=== PATIENT | male | born 1960 | race Caucasian/White ===

== ENCOUNTER → 2017-09-14 | Outpatient (CLI) | payer BC ==
--- NOTE | ~2017-09-14 | 2DMMODE ---
[place] [address] 2 D/M-MODE ECHOCARDIOGRAM Name: KINGS HUMPHREY MARISELAJAIME Room #: REG CL [facility]#: [id number] Admission: 09/14/17 Attend Phys: Don Cox, Discharge: Date of : 58 Date of Service: 09/14/17 1623 Report #: [id number] THIS REPORT FOR: //name// APPROVED REPORT Study performed: 09/14/2017 13:57:23 EXAM: Comprehensive 2D, Doppler, and color-flow Echocardiogram Patient Location: Out-Patient Status: routine BSA: 2.24 HR: 80 bpm BP: 196/105 mmHg Rhythm: NSR Other Information Study Quality: Good Indications Aortic stenosis. Hx: CAD. stents, HTN, HLP 2D Dimensions RVDd: 36.12 mm LVEF(%): 56.03 (>50%) IVSd: 12.36 (7-11mm) LVOT Diam: 20.97 (18-24mm) LVDd: 42.38 mm PWd: 12.58 (7-11mm) LVDs: 30.10 (25-40mm) Aortic Root: 32.13 mm Rios's LVEF: 56.03 % Volumes Left Atrial Volume (Systole) Single Plane 4CH: 59.30 mL Single Plane 2CH: 55.87 mL LA ESV Index: 29.00 mL/m2 Aortic Valve AoV Peak Donald.: 3.45 m/s AO Peak Gr.: 47.55 mmHg LVOT Max P.93 mmHg AO Mean Gr.: 26.64 mmHg AO V2 Mean: 2.47 m/s LVOT Max V: 1.11 m/s AO V2 VTI: 71.86 cm MELBA Vmax: 1.11 cm2 Mitral Valve [place] [address] 2 D/M-MODE ECHOCARDIOGRAM Name: KINGS HUMPHREY Room #: REG [facility].#: [id number] Admission: 09/14/17 Attend Phys: Don Cox, Discharge: Date of : 58 Date of Service: 09/14/17 1623 Report #: [id number] E/A Ratio: 0.8 MV Decel. Time: 270.88 ms MV E Max Donald.: 0.85 m/s MV A Donald.: 1.06 m/s MV PHT: 78.56 ms IVRT: 72.66 ms Pulmonary Valve PV Peak Donald.: 1.28 m/s PV Peak Gr.: 6.54 mmHg Pulmonary Vein P Vein S: 0.60 m/s P Vein A: 0.35 m/s P Vein D: 0.34 m/s P Vein A Dur.: 86.5 msec P Vein S/D Ratio: 1.76 Tricuspid Valve RAP Estimate: 5.00 mmHg Left Ventricle The left ventricle is normal size. There is normal LV segmental wall motion. Mild concentric left ventricular hypertrophy. Left ventricular systolic function is normal. LVEF is 60-65%. Mild diastolic dysfunction is present (impaired relaxation pattern). Right Ventricle The right ventricle is normal size. The right ventricular systolic function is normal. Atria The left atrium size is normal. The right atrium size is normal. Aortic Valve Aortic valve is moderately calcified, trileaflet, moderately stenotic. Trace aortic regurgitation. There is moderate valvular aortic stenosis. Calculated aortic valve area is 1.1 cm2 with maximum pressure gradient of 48 mmHg and mean pressure gradient of 27 mmHg. Mitral Valve Mild mitral annular calcification. Trace mitral regurgitation. No evidence of mitral valve stenosis. Tricuspid Valve The tricuspid valve is normal in structure. There is no tricuspid [address] [address] 2 D/M-MODE ECHOCARDIOGRAM Name: KAMKINGS DUVAL Room #: REG CL [facility]#: [id number] Admission: 09/14/17 Attend Phys: Don Cox, Discharge: Date of : 58 Date of Service: 09/14/17 1623 Report #: [id number] valve regurgitation noted. Unable to assess PA pressure. Pulmonic Valve The pulmonary valve is normal in structure. Trace pulmonic regurgitation. Great Vessels The aortic root is normal in size. The ascending aorta is normal in size. IVC is normal in size and collapses >50% with inspiration. Pericardium There is no pericardial effusion. <Conclusion> Left ventricular systolic function is normal. There is normal LV segmental wall motion. LVEF is 60-65%. Mild diastolic dysfunction Aortic valve is moderately calcified, trileaflet, moderately stenotic. Trace insufficiency Calculated aortic valve area is 1.1 cm2 with maximum pressure gradient of 48 mmHg and mean pressure gradient of 27 mmHg. Mild mitral annular calcification. Trace mitral regurgitation. Pulmonary artery pressure could not be reliably ascertained There is no pericardial effusion. <ELECTRONICALLY SIGNED> By: Yinka Clark MD, FACC 09/14/17 1623 1623 162 Yinka Clark MD, FACC /INF
== END ==
LOC: CV 07:30
DX: I35.0 Nonrheumatic aortic (valve) stenosis (principal); I25.10 Atherosclerotic heart disease of native coronary artery without angina pectoris; Z98.61 Coronary angioplasty status; I10 Essential (primary) hypertension; E78.5 Hyperlipidemia, unspecified; I51.7 Cardiomegaly; I70.0 Atherosclerosis of aorta; I34.8 Other nonrheumatic mitral valve disorders

== ENCOUNTER → 2018-12-07 | Outpatient (CLI) | payer BC ==
--- NOTE | 2018-12-07 13:47 | 2DMMODE ---
[facility] [employer] [place] [address] 2 D/M-MODE ECHOCARDIOGRAM Name: KINGS HUMPHREY MARISELAJAIME Room #: REG [facility]#: [id number] ������������� Admission: 12/07/18 ������������� Attend Phys: Don Cox, Discharge: ��� ������������� ��� Date of : 58 Date of Service: 12/07/18 1346 �� Report #: [id number] �������� ��������������������������������������������[id number] THIS REPORT FOR: //name// APPROVED REPORT Study performed: 12/07/2018 11:17:33 EXAM: Comprehensive 2D, Doppler, and color-flow Echocardiogram Patient Location: Out-Patient Status: routine BSA: 2.24 HR: 77 bpm BP: 142/82 mmHg Rhythm: NSR Other Information Study Quality: Adequate Indications Aortic Valve Disease Hypertension/HDD 2D Dimensions RVDd: 31.79 mm IVSd: 13.70 (7-11mm) LVOT Diam: 17.54 (18-24mm) LVDd: 41.38 mm PWd: 13.23 (7-11mm) Ascending Ao: 29.27 (22-36mm) LVDs: 27.32 (25-40mm) Aortic Root: 33.68 mm IVC: 18.00 mm Volumes Left Atrial Volume (Systole) Single Plane 4CH: 102.69 mL Single Plane 2CH: 59.32 mL LA ESV Index: 37.00 mL/m2 Aortic Valve AoV Peak Donald.: 3.67 m/s AO Peak Gr.: 53.74 mmHg LVOT Max P.41 mmHg AO Mean Gr.: 35.92 mmHg LVOT Mean P.48 mmHg AO V2 Mean: 2.84 m/s LVOT Max V: 1.05 m/s AO V2 VTI: 86.45 cm LVOT Mean V: 0.73 m/s MELBA (VTI): 0.70 cm2 LVOT V1 VTI: 25.11 cm MELBA Vmax: 0.69 cm2 SV (LVOT): 60.61 mL [facility] [place] [address] 2 D/M-MODE ECHOCARDIOGRAM Name: GABBISCOTOMAYRAKINGS DUVAL Room #: REG [facility]#: [id number] ������������� Admission: 12/07/18 ������������� Attend Phys: Don Cox, Discharge: ��� ������������� ��� Date of : 58 Date of Service: 12/07/18 1346 �� Report #: [id number] �������� ��������������������������������������������[id number] Mitral Valve E/A Ratio: 0.6 MV Decel. Time: 444.96 ms MV E Max Donald.: 0.72 m/s MV A Donald.: 1.17 m/s MV PHT: 129.04 ms IVRT: 133.79 ms Pulmonary Valve PV Peak Donald.: 0.97 m/s PV Peak Gr.: 3.81 mmHg Pulmonary Vein P Vein S: 0.60 m/s P Vein A: 0.25 m/s P Vein D: 0.31 m/s P Vein A Dur.: 110.7 msec P Vein S/D Ratio: 1.94 Left Ventricle The left ventricle is normal size. There is normal LV segmental wall motion. Mild concentric left ventricular hypertrophy. The left ventricular systolic function is normal. The left ventricular ejection fraction is within the normal range. LVEF is 60-65%. Right Ventricle The right ventricle is normal size. The right ventricular systolic function is normal. Atria Left atrium is dilated. The right atrium size is normal. Aortic Valve The aortic valve is normal in structure. Aortic valve is calcified. Mild aortic regurgitation. Severe aortic stenosis. Mitral Valve The mitral valve is normal in structure. There is no mitral valve regurgitation noted. No evidence of mitral valve stenosis. Tricuspid Valve The tricuspid valve is normal in structure. There is no tricuspid valve regurgitation noted. Pulmonic Valve The pulmonary valve is normal in structure. There is no pulmonic valvular regurgitation. [facility] [address] [place] [address] 2 D/M-MODE ECHOCARDIOGRAM Name: KINGS HUMPHREY Room #: REG [facility]#: [id number] ������������� Admission: 12/07/18 ������������� Attend Phys: Don Cox, Discharge: ��� ������������� ��� Date of : 58 Date of Service: 12/07/18 1346 �� Report #: [id number] �������� ��������������������������������������������[id number] Great Vessels The aortic root is normal in size. IVC is normal in size and collapses >50% with inspiration. Pericardium There is no pericardial effusion. <Conclusion> The left ventricle is normal size. LVEF is 60-65%. Left atrium is dilated. The aortic valve is normal in structure. Aortic valve is calcified. Mild aortic regurgitation. The mitral valve is normal in structure. The tricuspid valve is normal in structure. The pulmonary valve is normal in structure. There is no pericardial effusion. ��������������������������������������������� <ELECTRONICALLY SIGNED> ���������������������������������������� By: Eladio Schrader MD ��������������������������������������������� 12/07/18 1346 1346 1346 Eladio Schrader MD /INF
== END ==
LOC: CV 10:38
DX: I35.0 Nonrheumatic aortic (valve) stenosis (principal)

== ENCOUNTER → 2020-08-08 | Outpatient (CLI) | payer BC ==
--- NOTE | 2020-08-08 14:44 | 2DMMODE ---
[facility] [place] [address] 2 D/M-MODE ECHOCARDIOGRAM Name: KINGS HUMPHREY Room #: REG [facility]#: [id number] Admission: 08/08/20 Attend Phys: Bridger Contreras MD Discharge: Date of : 58 Report #: [id number] THIS REPORT FOR: cc: Yo Parker John E. DO Lammoglia, Francisco J. MD ~ APPROVED REPORT Study performed: 08/08/2020 13:55:46 EXAM: Comprehensive 2D, Doppler, and color-flow Echocardiogram Patient Location: Out-Patient Status: routine BSA: 2.22 HR: 64 bpm BP: 136/88 mmHg Rhythm: NSR Other Information Study Quality: Good Indications Status post AVR, CABG. (2019) 2D Dimensions RVDd: 45.99 mm IVSd: 12.20 (7-11mm) LVDd: 47.62 mm PWd: 13.28 (7-11mm) Ascending Ao: 33.55 (22-36mm) LVDs: 26.63 (25-40mm) Aortic Root: 29.42 mm Volumes Left Atrial Volume (Systole) Single Plane 4CH: 95.14 mL Single Plane 2CH: 82.86 mL LA ESV Index: 44.00 mL/m2 Aortic Valve AoV Peak Donald.: 3.26 m/s AO Peak Gr.: 42.55 mmHg LVOT Max P.34 mmHg AO Mean Gr.: 24.36 mmHg AO V2 Mean: 2.29 m/s LVOT Max V: 1.26 m/s AO V2 VTI: 76.50 cm [facility] [address] [address] 2 D/M-MODE ECHOCARDIOGRAM Name: KINGS HUMPHREY Room #: REG CL [facility]#: [id number] Admission: 08/08/20 Attend Phys: Jose J Capps Discharge: Date of : 58 Report #: [id number] Mitral Valve E/A Ratio: 1.5 MV Decel. Time: 254.41 ms MV E Max Donald.: 1.32 m/s MV A Donald.: 0.89 m/s MV PHT: 73.78 ms IVRT: 64.59 ms Pulmonary Valve PV Peak Donald.: 1.23 m/s PV Peak Gr.: 6.04 mmHg Pulmonary Vein P Vein S: 0.63 m/s P Vein A: 0.39 m/s P Vein D: 0.71 m/s P Vein A Dur.: 170.7 msec P Vein S/D Ratio: 0.89 Tricuspid Valve TR Peak Donald.: 2.56 m/s RAP Estimate: 5.00 mmHg TR Peak Gr.: 26.12 mmHg PA Pressure: 31.00 mmHg Left Ventricle The left ventricle is normal size. There is normal LV segmental wall motion. Mild concentric left ventricular hypertrophy. Left ventricular systolic function is normal. LVEF is 65%. Moderate diastolic dysfunction is present (pseudonormal filling). Right Ventricle The right ventricle is normal size. The right ventricular systolic function is normal. Atria Left atrium is mildly dilated. The right atrium size is normal. Aortic Valve Aortic valve replacement with an Chicas 23mm Bovine valve. Peak pressure gradient of 43mmHg, mean gradient of 24mmHg. Trace aortic regurgitation. Mitral Valve Mitral valve leaflets are mildly thickened. Moderate mitral annular calcification cannot exclude vegetation. Trace mitral regurgitation. No evidence of mitral valve stenosis. [facility] [address] [place] [address] 2 D/M-MODE ECHOCARDIOGRAM Name: KINGS HUMPHREY Room #: REG [facility]#: [id number] Admission: 08/08/20 Attend Phys: Jose J Capps Discharge: Date of : 58 Report #: [id number] Tricuspid Valve The tricuspid valve is normal in structure. Mild tricuspid regurgitation. Estimated PAP is 30mmHg. Pulmonic Valve The pulmonary valve is normal in structure. Trace pulmonic regurgitation. Great Vessels The aortic root is normal in size. The ascending aorta is normal in size. IVC is normal in size and collapses >50% with inspiration. Pericardium There is no pericardial effusion. <Conclusion> The left ventricle is normal size. LVEF is 65%. Left atrium is mildly dilated. Aortic valve replacement with an Chicas 23mm Bovine valve. Peak pressure gradient of 43mmHg, mean gradient of 24mmHg. Trace aortic regurgitation. Mitral valve leaflets are mildly thickened. Moderate mitral annular calcification cannot exclude vegetation. Trace mitral regurgitation. The tricuspid valve is normal in structure. Mild tricuspid regurgitation. Estimated PAP is 30mmHg. The pulmonary valve is normal in structure. Trace pulmonic regurgitation. There is no pericardial effusion. <ELECTRONICALLY SIGNED> By: Eladio Schrader MD 08/08/20 1444 1444 1444 Eladio Schrader MD /INF
== END ==
LOC: CV 13:41
PROVIDERS: ATTEND Internal Medicine Cardiovascular Disease
DX: I08.1 Rheumatic disorders of both mitral and tricuspid valves (principal); Z95.2 Presence of prosthetic heart valve